=== PATIENT | male | born 1955 | race Caucasian/White ===

== ENCOUNTER 2016-11-09 12:46 | Emergency (ER) | payer MEDICARE, OTHER ==
[~2016-11-09] VITALS: Ht 170.2 cm; Wt 70.0 kg
[2016-11-09 12:46] VITALS: Ht 170.2 cm; Wt 70.0 kg
[2016-11-09] MEDS ORDERED: ASPI-664 PO (12:59)
[2016-11-09] MEDS ORDERED: ATOR20TA38 PO (12:59)
[2016-11-09] MEDS ORDERED: BENA20TA48 PO (13:00)
[2016-11-09] MEDS ORDERED: CLZP100T PO (13:01)
--- NOTE | 2016-11-09 13:21 | ERA ---
ER Documentation Chief Complaint Date/Time DATE: 11/09/16 TIME: 13:11 Chief Complaint BIB [facility] PT IN FULL ARREST. FIELD ARREST STARTED AT 1213 HPI 61-year-old male from a psychiatric facility who presents with cardiac arrest. EMS gives a report that the patient was found down apneic and pulseless. The patient had PEA arrest. The patient had multiple rounds of ACLS, was intubated in the field. Approximately 5 rounds of epinephrine, bicarb, atropine. The patient temporarily regained pulses in the lost pulses. The patient has PEA arrest upon arrival. Patient placed in room 1. ROS Critical patient Medications Home Meds Reported Medications Clozapine* (Clozaril*) 100 Mg Tab, 400 MG PO QHS Y for Q8PM, TAB 11/09/16 Benazepril Hcl* (Benazepril Hcl*) 20 Mg Tablet, 20 MG PO DAILY, #30 TAB 11/09/16 Atorvastatin Calcium* (Atorvastatin Calcium*) 20 Mg Tablet, 20 MG PO QHS, #30 TAB 11/09/16 Aspirin* (Aspirin* EC) 81 Mg Tablet.dr, 81 MG PO DAILY, TAB 11/09/16 Allergies Allergies: Coded Allergies: No Known Allergy (Unverified , 11/09/16) FmHx Critical patient Physical Exam Vitals Vital Signs Date Time Temp Pulse Resp B/P Pulse Ox O2 Delivery O2 Flow Rate FiO2 11/09/16 12:46 0 0 0/ Physical Exam General: Unresponsive Head: Normocephalic, atraumatic Eyes: Fixed and dilated pupils ENT: Moist mucous membranes Neck: Supple, no lymphadenopathy Respiratory: No spontaneous respiratory activity Cardiovascular: No spontaneous cardiac activity Abdominal: Soft, non-protuberant, no pulsatile mass : Deferred MSK: No spontaneous motor activity Neurologic: No spontaneous neurologic activity Skin: No evidence of trauma Procedures/MDM PROCEDURES: Direct laryngoscopy note Indication: Intubated in the field Consent: This was an emergent situation, implied consent was observed Secured at: 25 at the lip Procedure: Direct laryngoscopy was performed using a glide scope, I was able to directly visualize the endotracheal tube passing through the vocal cords. Appropriate placement. Central Line Note: Consent: Emergent. Indication: Critically ill patient requiring specialized vascular access for fluid or pressor management Location: Right femoral vein Procedure: Sterile procedure was observed throughout insertion of the central line. The insertion site was prepped with sterile solution. Landmarks were identified. insertion of a needle into the vein was obtained with return of dark , nonpulsatile blood. The wire was then threaded through the needle without complication. A small skin incision was made, the needle was removed intact, dilation of the vein was performed and insertion of a triple lumen catheter was completed. The catheter was then sutured to the skin. All 3 ports roxana back and flushed without difficulty. A sterile dressing was applied. The patient tolerated the procedure well there were no complications. Emergency Bedside Ultrasound: Indication: Cardiac arrest Probe Type: Cardiac Findings: Unable to visualize the cardiac silhouette, difficult technically MEDICAL DECISION MAKING: The patient presents in full cardiac arrest with PEA. Unknown etiology. Patient was intubated in the field. Unclear etiology to the patient's arrest. It does not appear that the patient had access to his medications, lower suspicion for toxicologic process. ER COURSE: Upon arrival the patient did not have pulses. The patient was intubated in the field. I directed ACLS per protocol. The patient received multiple doses of epinephrine in the field. I repeated doses of epinephrine, calcium, bicarb in the emergency department. The patient continued to have pulses electrical activity. Transiently we were able to have return of spontaneous circulation though this only lasted approximately 2 minutes. The patient then had PEA arrest again. ACLS was again initiated, multiple doses of epinephrine provided. A femoral central line was placed and the endotracheal tube was checked as documented above. The patient continued to have PA arrest without return of spontaneous circulation. After prolonged resuscitation efforts with greater than 40 minutes in the field the patient has no return of spontaneous circulation, continued PEA arrest. At this time further resuscitation efforts are likely futile. The patient currently does not have any spontaneous respiratory activity, no spontaneous cardiac activity, no spontaneous neurologic activity. DISPOSITION PLAN: Time of called at 1308 Critical Care Note: Total time: 35 minutes Indication/Organ System Threat: Cardiac arrest I spent the above amount of critical care time with the patient, not including billable procedures. This included chart review, consultations, repeat bedside evaluations, and titration of appropriate medications to prevent cardiopulmonary or respiratory collapse. Departure Diagnosis: Primary Impression: Cardiac arrest Additional Impression: Pulseless electrical activity Condition: Critical () MARRY GUARDADO MD Nov 09, 2016 13:21
== END 2016-11-09 17:57 | disposition expired ==
LOC: E/R 12:46
DX: I46.9 Cardiac arrest, cause unspecified (principal); Z79.82 Long term (current) use of aspirin
CPT/HCPCS: 92950